=== PATIENT | male | born 1995 | race Caucasian/White ===

== ENCOUNTER 2018-03-05 01:05 | Emergency (ER) | payer OTHER ==
[2018-03-05 01:10] VITALS: O2SAT 98
[2018-03-05] MEDS ORDERED: ONDANSETRON 4MG OD TAB PO ONE (01:30)
[2018-03-05 01:44] LABS: BLOOD UREA NITROGEN 12 mg/dl (7-18); CARBON DIOXIDE 27 mmol/L (21-32); CREATININE 1.07 mg/dl (0.60-1.40); GLUCOSE 100 mg/dl (70-99); POTASSIUM 2.9 mmol/L (3.5-5.1); SODIUM 139 mmol/L (136-145)
[2018-03-05] MEDS ORDERED: POTASSIUM CHLORIDE 10 MEQ TABCR PO STA (02:03)
[2018-03-05] MEDS ORDERED: POTASSIUM CHLORIDE 10 MEQ TABCR ONE (04:44)
--- NOTE | 2018-03-05 04:46 | EMERGENCY ROOM VISIT NOTE ---
History First contact with patient: 01:10 Chief Complaint: ALCOHOL OVERDOSE Stated Complaint: ETOH Nursing Triage Summary: Pt arrives via ALS litter with [employer]. Per medic, pt was found by a bouncer in the alley [place] [employer]. Pt obtunded upon arrival. Medic states pt did tell him that he has a brother in [place], but no further information was obtained. Pt not answering questions upon arrival. History of Present Illness The patient is a 22 year old male who presents to the Emergency Room with complaints of alcohol intoxication. Patient had a lot of alcohol tonight and was found passed out in back of the [facility]. Patient denies fall, chest pain, dyspnea, abdominal pain or any other medical complaints. Review of Systems An 10 system review of systems was completed with positives and pertinent negatives listed in the HPI. Past Medical/Surgical History None Social History Smoking Status: Unknown if Ever Smoked Alcohol Use: occasionally Drug Use: none Occupation Status: employed Current/Historical Medications Unable to Obtain Active Prescriptions or Reported Meds Physical Exam Vital Signs Date Time Temp Pulse Resp B/P (MAP) Pulse Ox O2 Delivery O2 Flow Rate FiO2 03/05/18 04:00 54 16 114/50 97 Room Air 03/05/18 03:17 52 16 106/53 96 Room Air 03/05/18 02:00 63 18 106/49 97 Room Air 03/05/18 01:13 58 03/05/18 01:10 36.4 54 18 137/66 99 Room Air 03/05/18 01:10 98 Room Air Physical Exam PHYSICAL EXAM: VITALS: Vitals are noted on the nurse's note and reviewed by myself. Vital signs stable. GENERAL: Pleasant male with EtOH odor, in no acute distress, nondiaphoretic, well-developed well-nourished. The patient is visibly intoxicated. SKIN: The skin was without obvious lacerations, abrasions, or rashes. There is no tenting of the skin. Capillary reflex less than 2 seconds. HEENT: Normocephalic, atraumatic. PERRLA. EOMI. Conjunctiva with mild injection without icterus. Tympanic membranes without erythema or effusion bilaterally no hemotympanum. External auditory canals are clear. Nares patent bilaterally. No epistaxis. Oropharynx without erythema or exudate. Uvula midline. Oral mucosal moist. No lymphadenopathy. Neck is supple without cervical spine tenderness. HEART: Regular rate and rhythm without murmurs gallops or rubs. Peripheral pulses 2+. LUNGS: Clear to auscultation bilaterally without wheezes, rales or rhonchi. ABDOMEN: Positive bowel sounds x 4. Normal tympanic percussion. Soft, nontender, without masses or organomegaly. MUSCULOSKELETAL: Gross motor function of the upper and lower extremities intact. The patient has a staggering gait. NEUROLOGIC: The patient is visibly intoxicated. Once they were more sober they were alert and oriented to person place and time. Medical Decision & Procedures Laboratory Results 03/05/18 01:13 Test 03/05/18 01:13 Anion Gap 9.0 mmol/L (3-11) Estimated GFR () 114.4 Estimated GFR (Non- 98.7 BUN/Creatinine Ratio 11.0 (10-20) Calcium Level 8.0 mg/dl (8.5-10.1) Ethyl Alcohol mg/dL 239.0 mg/dl (0-3) Medications Administered Medications (Trade) Dose Ordered Sig/Hua Route Start Time Stop Time Status Last Admin Dose Admin Ondansetron HCl (Zofran Odt) 4 mg ONE ONCE PO 03/05/18 01:30 03/05/18 01:31 DC 03/05/18 01:29 4 MG ED Course Prior records/ancillary studies reviewed. Triage Nursing notes reviewed. Additional history obtained from EMS. The patient's history was concerning for altered mental status and a possible alcohol overdose. Differential diagnosis: Etiologies such as alcohol intoxication, toxicologic, infection, hypoglycemia, electrolyte abnormalities, cardiac sources, intracerebral event, neurologic, as well as others were entertained. Physical examination: As above. The patient is clinically intoxicated. no trauma noted. ER treatment provided: Monitoring Aspiration precautions The patient was frequently reassessed. Diagnostic interpretation by me: Cardiac monitoring did not reveal any evidence of dysrhythmia. The labs revealed hypokalemia and this is replaced orally. The patient's blood alcohol level was 239 mg/dL. The patient's history was reviewed once they were more coherent and their intoxication cleared. The patient states they have been in good health recently and had no medical complaints. The patient admitted to consuming alcohol. No additional concerning findings were noted. The patient complained of no symptoms to suggest assault. This appears to be consistent with an isolated overdose of alcohol. By the evaluation outlined above emergent etiologies such as trauma, infection, hypoglycemia, electrolyte abnormalities, cardiac sources, intracerebral event, neurologic,as well as others were deemed relatively unlikely. The patient was informed about the findings as listed above. The patient was counseled on the dangers of excessive alcohol use. I gave my usual and customary discussion regarding this issue. All questions were answered and the patient was pleased with the treatment. Return instructions were outlined and the patient was discharged in stable condition once their mental status improved and a safe destination was confirmed. Outpatient prescription management: None Referral: The patient was referred back to their primary care physician for follow-up in 2 to 3 days for a recheck of their current condition. The chart was completed utilizing [employer] Speech voice recognition software. Grammatical errors, random word insertions, pronoun errors, and incomplete sentences are an occassional consequence of this system due to software limitations, ambient noise, and hardware issues. Any formal questions or concerns about the content, text, or information contained within the body of this dictation should be directly addressed to the physician interior design assistant for clarification. Medical Decision As above Medication Reconcilliation Current Medication List: was personally reviewed by me Blood Pressure Screening Patient's blood pressure: Normal blood pressure Impression Primary Impression: Alcoholic intoxication Additional Impression: Hypokalemia Departure Information Dispostion Home / Self-Care Condition GOOD Prescriptions Unable to Obtain Active Prescriptions or Reported Meds Patient Instructions My [facility] [place] [facility] Closure Additional Instructions Keep well-hydrated. Tylenol every 6 hours as needed for pain (Maximum 3000 mg Tylenol in 24 hr period). Follow up with family doctor and/or health services as needed. No driving for the next 24 hours. Recommend no alcohol for the next 48 hours and avoid binge drinking in the future. Return to ER sooner for chest pain, abdominal pain, worsening signs or symptoms or as needed. Problem Qualifiers
[2018-03-05 05:02] VITALS: BP 120/58; PULSE 68; O2SAT 97
== END 2018-03-05 05:27 | disposition home or self-care (01) ==
LOC: EDBD 01:05 → C.EDB 01:07
DX: F10.929 Alcohol use, unspecified with intoxication, unspecified (principal); E87.6 Hypokalemia; Y90.7 Blood alcohol level of 200-239 mg/100 ml